=== PATIENT | female | born 1955 | race Caucasian/White ===

== ENCOUNTER 2017-06-17 22:08 | Inpatient (IN) | payer OTHER ==
[~2017-06-17] VITALS: Ht 152.4 cm; Wt 79.7 kg
[2017-06-17 23:11] LABS: BASO % 0.5 % (0.0-2.0); EOS # 0.2 (0.0-0.7); GRAN # 5.4 (1.4-6.5); GRAN % 67.6 % (42.2-75.2); HEMATOCRIT 38.3 % (37.0-47.0); HEMOGLOBIN 12.9 g/dl (12.5-16.0); LYMPH # 1.5 (1.2-3.4); LYMPH % 18.6 % (20.0-51.0); MEAN CELL VOLUME 95 fl (80.0-100.0); MEAN CORPUSCULAR HEMOGLOBIN 32 pg (27.0-31.0); MEAN CORPUSCULAR HGB CONC 34 g/dl (33.0-37.0); MEAN PLATELET VOLUME 9.3 fl (7.4-10.4); MONO # 0.8 (0.1-0.6); MONO % 10.2 % (1.7-9.3); PLATELET COUNT 333 K/mm3 (130-400); RED BLOOD COUNT 4.02 M/mm3 (4.10-5.30)
[2017-06-17] MEDS ORDERED: LINZESS290CAP PO (23:29)
[2017-06-17] MEDS ORDERED: AVAPRO TAB150 MG/TAB PO (23:29)
[2017-06-17] MEDS ORDERED: SYNTHROID0.112 MG/T PO (23:30)
[2017-06-17] MEDS ORDERED: TIMOLOL MALEATE5 M1 OP (23:30)
[2017-06-17] MEDS ORDERED: [UNRECOGNIZED DRUG - OTHER] PO (23:31)
[2017-06-17 23:35] LABS: ADJUSTED CALCIUM 9.2 mg/dL (8.4-10.2); ALBUMIN 4.6 gm/dL (3.5-5.0); BILIRUBIN,TOTAL 0.5 mg/dL (0.0-1.0); C-REACTIVE PROTEIN 3.7 mg/dL (0.0-0.9); CALCIUM 9.7 mg/dL (8.4-10.2); CREATININE, serum 0.56 mg/dL (0.52-1.25); POTASSIUM 3.7 mmol/L (3.4-5.0); TOTAL PROTEIN 8.3 gm/dL (6.4-8.2)
[2017-06-18] VITALS (14 sets, daily range): BP systolic 121–154; BP diastolic 60–105; PULSE 63–100; TEMP 98–100.9
[2017-06-18 00:18] LABS: COLLECTION METHOD CLEAN CATCH
[2017-06-18 02:01] LABS: PH 8 (5-8); SQUAMOUS EPITHELIAL 0-2 /hpf; URINE APPEARANCE Clear; URINE BACTERIA None Seen /hpf; URINE BILIRUBIN Negative (NEGATIVE); URINE BLOOD 1+ (NEGATIVE); URINE COLOR Yellow; URINE GLUCOSE Negative (NEGATIVE); URINE KETONE Trace (NEGATIVE); URINE LEUKOCYTE ESTERASE Negative (NEGATIVE); URINE PROTEIN(semi-quant) Negative (NEGATIVE); URINE UROBILINOGEN Negative (NEGATIVE); URINE WBC 0-2 /hpf
[2017-06-18] MEDS ORDERED: ZANTAC 150MG T150 MG PO ×2 (03:16→03:17)
[2017-06-19 05:00] VITALS: BP 105/44; PULSE 71; TEMP 98.9
[2017-06-19 07:12] LABS: BASO % 0.1 % (0.0-2.0); GRAN # 6.7 (1.4-6.5); GRAN % 84.4 % (42.2-75.2); LYMPH # 0.4 (1.2-3.4); LYMPH % 5.4 % (20.0-51.0); MEAN CELL VOLUME 98 fl (80.0-100.0); MEAN CORPUSCULAR HGB CONC 33 g/dl (33.0-37.0); MEAN PLATELET VOLUME 9.7 fl (7.4-10.4); MONO # 0.8 (0.1-0.6); MONO % 9.6 % (1.7-9.3); WHITE BLOOD COUNT 7.9 K/mm3 (4.8-10.8)
[2017-06-19 07:14] LABS: HEMATOCRIT 29.4 % (37.0-47.0); HEMOGLOBIN 9.6 g/dl (12.5-16.0); MEAN CORPUSCULAR HEMOGLOBIN 32 pg (27.0-31.0); PLATELET COUNT 225 K/mm3 (130-400)
[2017-06-19 07:21] LABS: CALCIUM 8.6 mg/dL (8.4-10.2); CREATININE, serum 0.61 mg/dL (0.52-1.25); POTASSIUM 3.9 mmol/L (3.4-5.0)
[2017-06-19 08:00] VITALS: BP 115/57; PULSE 68; TEMP 98.1
[2017-06-19 09:18] VITALS: PULSE 73
[2017-06-19 12:00] VITALS: BP 118/52; PULSE 72; TEMP 97.5
[2017-06-19 15:42] VITALS: BP 124/52; PULSE 72; TEMP 98.7
[2017-06-19 20:00] VITALS: BP 133/71; PULSE 70; TEMP 98.2
[2017-06-20] VITALS: BP 120/82; PULSE 80; TEMP 98.8
[2017-06-20 05:35] VITALS: BP 128/62; PULSE 80; TEMP 99.9
[2017-06-20 07:22] LABS: BASO % 0.2 % (0.0-2.0); EOS # 0.1 (0.0-0.7); GRAN # 3.9 (1.4-6.5); GRAN % 76.1 % (42.2-75.2); LYMPH # 0.7 (1.2-3.4); LYMPH % 13.4 % (20.0-51.0); MEAN CELL VOLUME 98 fl (80.0-100.0); MEAN CORPUSCULAR HGB CONC 33 g/dl (33.0-37.0); MEAN PLATELET VOLUME 9.3 fl (7.4-10.4); MONO # 0.5 (0.1-0.6); MONO % 8.9 % (1.7-9.3); PLATELET COUNT 168 K/mm3 (130-400); RED BLOOD COUNT 2.54 M/mm3 (4.10-5.30); WHITE BLOOD COUNT 5.2 K/mm3 (4.8-10.8)
[2017-06-20 07:27] LABS: HEMATOCRIT 24.9 % (37.0-47.0); HEMOGLOBIN 8.2 g/dl (12.5-16.0); MEAN CORPUSCULAR HEMOGLOBIN 32 pg (27.0-31.0)
[2017-06-20 07:33] LABS: CALCIUM 8.1 mg/dL (8.4-10.2); CREATININE, serum 0.53 mg/dL (0.52-1.25); POTASSIUM 3.3 mmol/L (3.4-5.0)
[2017-06-20 08:00] VITALS: BP 145/67; PULSE 65; TEMP 98.9
[2017-06-20 13:52] VITALS: BP 129/67; PULSE 62; TEMP 99
[2017-06-20 17:36] VITALS: BP 113/49; PULSE 75; TEMP 98.4
[2017-06-20 20:57] VITALS: BP 127/57; PULSE 78; TEMP 98.4
[2017-06-21 02:10] VITALS: BP 111/56; PULSE 70; TEMP 98.9
[2017-06-21 05:01] VITALS: BP 126/64; PULSE 66; TEMP 99.8
[2017-06-21 07:16] LABS: MEAN CELL VOLUME 98 fl (80.0-100.0); MEAN CORPUSCULAR HGB CONC 33 g/dl (33.0-37.0); MEAN PLATELET VOLUME 9.5 fl (7.4-10.4); PLATELET COUNT 190 K/mm3 (130-400); RED BLOOD COUNT 2.52 M/mm3 (4.10-5.30); WHITE BLOOD COUNT 4.1 K/mm3 (4.8-10.8)
[2017-06-21 07:18] LABS: HEMATOCRIT 24.7 % (37.0-47.0); HEMOGLOBIN 8.2 g/dl (12.5-16.0); MEAN CORPUSCULAR HEMOGLOBIN 33 pg (27.0-31.0)
[2017-06-21 07:30] LABS: CALCIUM 8.2 mg/dL (8.4-10.2); CREATININE, serum 0.55 mg/dL (0.52-1.25); POTASSIUM 3.7 mmol/L (3.4-5.0)
[2017-06-21 08:00] VITALS: BP 151/73; PULSE 72; TEMP 98
[2017-06-21 11:00] VITALS: BP 154/77; PULSE 73; TEMP 98
[2017-06-21 14:17] VITALS: BP 137/74; PULSE 68; TEMP 98.2
[2017-06-21 17:32] VITALS: BP 148/90; PULSE 76; TEMP 98
[2017-06-22] VITALS (7 sets, daily range): BP systolic 126–155; BP diastolic 57–89; PULSE 58–88; TEMP 97.8–98.4
[2017-06-23 06:10] VITALS: BP 138/78; PULSE 72; TEMP 97.9
[2017-06-23 06:56] LABS: BASO % 0.5 % (0.0-2.0); EOS # 0.2 (0.0-0.7); GRAN # 2.6 (1.4-6.5); GRAN % 60.5 % (42.2-75.2); LYMPH % 22.7 % (20.0-51.0); MEAN CORPUSCULAR HGB CONC 34 g/dl (33.0-37.0); MONO # 0.5 (0.1-0.6); MONO % 11.1 % (1.7-9.3); PLATELET COUNT 283 K/mm3 (130-400); WHITE BLOOD COUNT 4.2 K/mm3 (4.8-10.8)
[2017-06-23 07:12] LABS: HEMATOCRIT 29.9 % (37.0-47.0); HEMOGLOBIN 10.3 g/dl (12.5-16.0); MEAN CORPUSCULAR HEMOGLOBIN 32 pg (27.0-31.0)
[2017-06-23 07:13] LABS: MEAN CELL VOLUME 93 fl (80.0-100.0)
[2017-06-23 07:20] LABS: CALCIUM 8.9 mg/dL (8.4-10.2); CREATININE, serum 0.55 mg/dL (0.52-1.25); POTASSIUM 3.2 mmol/L (3.4-5.0)
[2017-06-23 09:32] VITALS: BP 122/73; PULSE 77; TEMP 97.5
[2017-06-23 13:16] VITALS: BP 145/86; PULSE 73; TEMP 97.7
== END 2017-06-23 14:35 | disposition home or self-care (01) | DRG 330 ==
LOC: COL.ER 22:08 → SURG 06-18 00:57
PROVIDERS: Emergency Medicine; Surgery
PROC: 0DNU0ZZ Release Omentum, Open Approach (ICD-10-PCS; 2017-06-18)
PROC: 0DTA0ZZ Resection of Jejunum, Open Approach (ICD-10-PCS; principal; 2017-06-18 11:00)
PROC: 0DTB0ZZ Resection of Ileum, Open Approach (ICD-10-PCS; 2017-06-18 11:00)
PROC: 0DJD4ZZ Inspection of Lower Intestinal Tract, Percutaneous Endoscopic Approach (ICD-10-PCS; 2017-06-18 11:00)
DX: K55.011 Focal (segmental) acute (reversible) ischemia of small intestine (principal); K56.51 Intestinal adhesions [bands], with partial obstruction; I10 Essential (primary) hypertension; K58.9 Irritable bowel syndrome, unspecified
CPT/HCPCS: A4314; A9284; J0330; J1100; J1170; J1200; J1650; J1885; J1956; J2405; J2550; J2704; J2710; J3010; J7030; J7042; Q9967